=== PATIENT | female | born 1975 ===

== ENCOUNTER 2024-11-28 05:50 | Day surgery (SDC) | payer OTHER ==
[2024-11-22 09:08] VITALS: BP 150/100
[2024-11-22 09:15] VITALS: BP 180/110
[2024-11-22 09:35] LABS: BASO % 1.2 % (0.1-1.2); EOS # 0.24 (0.04-0.54); EOS % 3.3 % (0.7-7.0); HEMATOCRIT 39.9 % (34.1-44.9); LYMPH # 2.23 (1.18-3.74); LYMPH % 30.7 % (19.3-53.1); MEAN CORPUSCULAR HEMOGLOBIN 27.8 pg (25.6-32.2); MONO # 0.57 (0.24-0.82); MONO % 7.9 % (4.7-12.5); NEUT # 4.09 (1.56-6.13); NEUT % 56.3 % (34.0-71.1); PLATELET COUNT 357 K/uL (163-369); RED BLOOD COUNT 4.68 M/uL (3.93-5.22); RED CELL DISTRIBUTION WIDTH 13.5 % (11.6-14.4)
[2024-11-22 09:51] LABS: URINE APPEARANCE Clear; URINE BILIRRUBIN Negative (NEGATIVE); URINE BLOOD Negative; URINE COLOR Yellow; URINE GLUCOSE Negative (NEGATIVE); URINE KETONE Negative (NEGATIVE); URINE LEUKOCYTE Moderate; URINE NITRATE Negative; URINE PROTEIN Negative (NEGATIVE); URINE UROBILINOGEN 0.2 E.U./dl
[2024-11-22 09:53] LABS: URINE BACTERIA 2680.4 uL (0.0-1933); URINE EPITHELIAL CELLS 50.6 uL (0.0-38.8); URINE RBC 6.4 uL (0.0-20.8); URINE WBC 81.8 uL (0.0-23.2)
[2024-11-22 09:54] LABS: INR 0.98; PARTIAL THROMBOPLASTIN TIME 29.9 SECONDS (22.0-34.0); PROTHROMBIN TIME 10.7 SECONDS (9.0-11.5)
[2024-11-22 10:02] LABS: URINE CAST 0.14 uL (0.0-1.40)
[2024-11-22 10:47] LABS: ALBUMIN 3.6 gm/dL (3.4-5.0); BILIRUBIN TOTAL 0.26 mg/dL (0.3-1.2); CALCIUM 8.6 mg/dL (8.5-10.1); CREATININE SERUM 0.7 mg/dL (0.55-1.02); GFR 88.22; GLOBULINA 3.8 G/DL (2.4-3.5); POTASSIUM 4.18 mEq/L (3.5-5.1); TOTAL PROTEIN 7.4 gm/dL (6.4-8.2)
[~2024-11-28] VITALS: Ht 160 cm; Wt 99.8 kg
[2024-11-28] MEDS ORDERED: CEFAZOLIN SODIUM 1,000 MG VIAL ONE (07:34)
[2024-11-28] MEDS ORDERED: POVIDONE-IODINE 118 ML BOTT TOP ONE ×2 (07:34→08:00)
[2024-11-28] MEDS ORDERED: CEFAZOLIN SODIUM 1,000 MG VIAL IV ONE (08:00)
[2024-11-28] MEDS ORDERED: DOXYCYCLINE HY100 M2 PO (08:57)
[2024-11-28] MEDS ORDERED: IBU800 MG PO (08:58)
[2024-11-28] MEDS ORDERED: MORPHINE SULFATE 4 MG/ML VIAL IV ONE (09:20)
== END 2024-11-28 12:45 | disposition home or self-care (01) ==
LOC: CIR.AMB 05:50
PROVIDERS: ATTEND Obstetrics & Gynecology
DX: D25.0 Submucous leiomyoma of uterus (principal); N84.0 Polyp of corpus uteri; N72 Inflammatory disease of cervix uteri; N95.0 Postmenopausal bleeding